=== PATIENT | male | born 2000 | race Caucasian/White ===

== ENCOUNTER 2022-06-28 18:26 | Emergency (ER) | payer SELFPAY ==
[~2022-06-28] VITALS: Ht 182.9 cm; Wt 76.0 kg
[2022-06-28 19:14] LABS: BASO% 0.6 % (0-3); EOS% 1.9 % (0-8); HEMATOCRIT 44.4 % (39.0-50.0); HEMOGLOBIN 14.8 g/dl (14.0-18.0); IMMATURE GRANULOCYTES 0.1 % (0.0-5.0); LYMPH% 37.2 % (15-41); MEAN CELL VOLUME 88.8 fL CALC (80.0-100.0); MEAN CORPUSCULAR HGB 29.6 pG CALC (26.0-32.0); MEAN CORPUSCULAR HGB CONC 33.3 g/dL CAL (32.0-36.0); MONO% 5.9 % (2-13); NEUT# 5.25 thou/uL (1.82-7.42); NEUT% 54.3 % (42-76); RED CELL DISTRI WIDTH 11.7 % (11.5-15.5)
[2022-06-28 19:34] LABS: ALKALINE PHOSPHATASE 34 u/l (38-126); ANION GAP 15 (6-22 (CALC)); BILIRUBIN, TOTAL 0.4 mg/dL (0.2-1.3); BUN 15 mg/dL (9-20); BUN/CREATININE RATIO 19 (12-20 (CALC)); CARBON DIOXIDE 25 mmol/l (22-30); CHLORIDE 104 mmol/l (95-108); CREATININE 0.8 mg/dL (0.7-1.3); ETHYL ALCOHOL 0 mg/dl (0-30); GFR FOR AFR.AMER. > 60 ML/MIN (>=60 (CALC)); GFR OTHER RACES > 60 ML/MIN (>=60 (CALC)); POTASSIUM 3.5 mmol/l (3.5-5.1); SGOT/AST 152 u/l (17-59); SODIUM 141 mmol/l (137-146); TOTAL PROTEIN 8.1 g/dL (6.3-8.2)
[2022-06-29 00:16] VITALS: BP 132/93
== END 2022-06-29 00:23 | disposition left against medical advice (07) | DRG 894 ==
LOC: ED 18:26 → MS2 22:48 → ED 22:48 → MS2 06-29 00:07 → ED 06-29 00:23
PROVIDERS: Family Medicine
DX: F12.188 Cannabis abuse with other cannabis-induced disorder (principal); R00.0 Tachycardia, unspecified; E86.0 Dehydration; Z53.29 Procedure and treatment not carried out because of patient's decision for other reasons

== ENCOUNTER 2022-10-09 20:54 | Emergency (ER) | payer OTHER ==
[~2022-10-09] VITALS: Ht 182.9 cm; Wt 75.0 kg
[2022-10-09 21:10] VITALS: BP 155/117
[2022-10-09 21:46] LABS: BASO% 0.3 % (0-3); HEMATOCRIT 49.4 % (39.0-50.0); IMMATURE GRANULOCYTES 0.1 % (0.0-5.0); LYMPH% 15.3 % (15-41); MEAN CELL VOLUME 87.6 fL CALC (80.0-100.0); MEAN CORPUSCULAR HGB 30.1 pG CALC (26.0-32.0); MEAN CORPUSCULAR HGB CONC 34.4 g/dL CAL (32.0-36.0); MONO% 3.7 % (2-13); NEUT# 9.92 thou/uL (1.82-7.42); NEUT% 80.6 % (42-76); RED BLOOD COUNT 5.64 mill/uL (4.70-6.10); RED CELL DISTRI WIDTH 11.7 % (11.5-15.5)
[2022-10-09 21:57] LABS: ALBUMIN 5.9 g/dL (3.2-5.0); ALKALINE PHOSPHATASE 59 u/l (38-126); ANION GAP 22 (6-22 (CALC)); BILIRUBIN, TOTAL 0.8 mg/dL (0.2-1.3); BUN 15 mg/dL (9-20); BUN/CREATININE RATIO 15 (12-20 (CALC)); CARBON DIOXIDE 25 mmol/l (22-30); CHLORIDE 104 mmol/l (95-108); GFR FOR AFR.AMER. > 60 ML/MIN (>=60 (CALC)); GFR OTHER RACES > 60 ML/MIN (>=60 (CALC)); LIPASE 52 u/l (23-300); POTASSIUM 4.5 mmol/l (3.5-5.1); SGOT/AST 55 u/l (17-59); SODIUM 146 mmol/l (137-146)
[2022-10-09 22:02] VITALS: BP 159/96
[2022-10-09 22:03] LABS: ACT PARTIAL THROMBO TIME 25.2 SECONDS (20.0-32.5); PROTHROMBIN TIME 10.4 SECONDS (9.0-12.5)
[2022-10-09 22:31] VITALS: BP 140/69
[2022-10-09 23:00] VITALS: BP 125/69
[2022-10-09 23:30] VITALS: BP 137/86
[2022-10-10] VITALS: BP 115/58
[2022-10-10] LABS: URINE BLOOD DIPSTICK NEGATIVE (NEGATIVE); URINE COLOR YELLOW; URINE GLUCOSE - DIPSTICK NEGATIVE (NEGATIVE); URINE KETONE 40 mg/dL (NEGATIVE); URINE LEUK ESTERASE NEGATIVE (NEGATIVE); URINE NITRITE - DIPSTICK NEGATIVE (Negative); URINE PH 7.5 (4.5-8.0); URINE PROTEIN - DIPSTICK 30 mg/dL (NEG-TRACE)
[2022-10-10 00:09] LABS: URINE MUCUS RARE hpf (NONE-FEW)
[2022-10-10] MEDS ORDERED: PROCHLORPER25 MG RE (00:18)
[2022-10-10 00:30] VITALS: BP 129/81
[2022-10-10 00:41] VITALS: BP 129/81
== END 2022-10-10 01:12 | disposition home or self-care (01) | DRG 392 ==
LOC: ED 20:54
PROVIDERS: Family Medicine
DX: A08.4 Viral intestinal infection, unspecified (principal)
CPT/HCPCS: S0164